=== PATIENT | male | born 1980 | race Two or more races ===

== ENCOUNTER 2023-05-06 15:07 | Outpatient (CLI) | payer BC, SELFPAY ==
--- NOTE | 2023-05-06 15:13 | MR_ITS ---
WS: [id number] MRI HEAD WITHOUT AND WITH GADOLINIUM ENHANCEMENT WITH ATTENTION TO THE PITUITARY TECHNIQUE: Sagittal T1, T2 axial, T2 axial FLAIR, axial susceptibility weighted imaging, axial diffus ion weighted images, and coronal T2 images were obtained. Pre and post-T1 axial and post T1 coronal i mages. ADC and FSPGR images. Pituitary protocol utilized. CLINICAL INFORMATION: DISORDER OF PITUITARY GLAND COMPARISON: None. FINDINGS: No evidence of restricted diffusion to suggest acute ischemia. Ventricular system and basilar cistern s are patent. No suspicious intracranial signal normalities. Normal mack-white differentiation. Normal posterior fossa. Normal vascular flow voids at the skull base. No extra-axial fluid collection s. No evidence of mass or mass effect. Tortuous basilar artery. Mucosal thickening in the paranasal s inuses. Mastoid air cells are well aerated. No hemosiderin on the susceptibly weighted images. Normal optic chiasm and pituitary infundibulum. Temporal lobes and hippocampal formations are normal in mario earance. No evidence of sellar or suprasellar mass. No hypoenhancing pituitary lesion or microadenoma on the p ost gadolinium images. No abnormal gadolinium enhancement. Normal cavernous sinuses. No other suspici ous findings. IMPRESSION: 1. No evidence of sellar or suprasellar mass. 2. Normal optic chiasm and pituitary infundibulum. 3. No suspicious intracranial signal abnormalities.
[2023-05-06] MEDS: gadobenate dimeglumine 20 mL vial IV (16:12)
== END 2023-05-06 15:08 | disposition home or self-care (01) ==
LOC: RAD 15:07
PROVIDERS: PCP Family Medicine; Visit Provider Family Medicine
DX: E23.7 Disorder of pituitary gland, unspecified (principal)
CPT/HCPCS: 70553; A9577

== ENCOUNTER → 2023-08-03 10:07 | Outpatient (BNVA) | payer BC, SELFPAY | PROVIDERS: PCP Family Medicine; Visit Provider Internal Medicine Rheumatology | DX: Z79.899 Other long term (current) drug therapy (principal); M19.90 Unspecified osteoarthritis, unspecified site; Z11.59 Encounter for screening for other viral diseases; M54.50 Low back pain, unspecified; M54.6 Pain in thoracic spine; M79.672 Pain in left foot; M79.671 Pain in right foot; M79.642 Pain in left hand; M79.641 Pain in right hand; M53.3 Sacrococcygeal disorders, not elsewhere classified | CPT/HCPCS: 36415; 72072; 72100; 72202; 73130; 73630; 80076; 82306; 82565; 83880; 85025; 85651; 86038; 86200; 86431; 86480; 86704; 86803; 86812; 87340 ==

== ENCOUNTER 2023-08-06 12:58 | Outpatient (CLI) | payer BC, SELFPAY ==
--- NOTE | 2023-08-06 13:34 | USCV_ITS ---
Spenser Argueta Age: 42 Gender: M : 1980 Exam Date: 08/06/2023 13:36 Ordering Phys: Carlos Manuel Garza MD Technologist: Randolph Lancaster Exam Location: [facility]_ Indication: Malignant HTN Aortic Velocity @ SMA (cm/s) 97.6 RIGHT KIDNEY LEFT KIDNEY Velocity (cm/s) Velocity (cm/s) Sys/Bradley Sys/Bradley Resistive Index Resistive Index 92.7 / 34.8 0.62 Proximal Renal Artery 86.3 / 21.8 0.74 89.9 / 26.5 0.71 Mid Renal Artery 90.1 / 36.3 0.59 51.3 / 19.6 0.62 Distal Renal Artery 87.1 / 35.1 0.59 66.5 / 21.0 0.68 Hilar 84.9 / 33.6 0.60 63.6 / 25.2 0.60 Upper Pole 38.1 / 17.1 0.55 90.4 / 30.1 0.67 Mid Pole 77.7 / 35.1 0.55 39.0 / 12.0 0.69 Lower Pole 63.4 / 29.2 0.54 0.95 Renal Aortic Ratio 0.92 Accleration Index (cm/sec2) 404.00 Hilar 1281.0 0 433.80 Upper Pole 349.70 662.00 Mid Pole 608.10 208.00 Lower Pole 488.80 109.0 Kidney Length (mm) 128.0 CONCLUSIONS Normal color flow Doppler, peak systolic velocities, Renal/Aortic peak systolic velocity ratio and resistive indices noted in bilateral main, segmental and interlobar renal arteries. No hydronephrosis in either kidney Shakeel Phillips MD (Electronically Signed) Final Date: 06 August 2023 16:40 S
== END 2023-08-06 12:59 | disposition home or self-care (01) ==
LOC: RAD 12:58
PROVIDERS: PCP Family Medicine; Visit Provider Family Medicine
DX: I10 Essential (primary) hypertension (principal)
CPT/HCPCS: 93975